=== PATIENT | female | born 1985 | race Caucasian/White ===

== ENCOUNTER 2021-08-20 05:48 | Inpatient (IN) | payer OTHER ==
[2021-08-20 06:42] LABS: HCT 39.9 % (37.0-47.0); HGB 13.8 g/dl (12.5-16.0); MCH 31.4 pg (25.0-31.0); MCHC 34.6 g/dL (32.0-36.0); MCV 90.9 fL (78.0-100.0); MPV 11.9 fL (6.0-9.5); RBC 4.39 M/uL (4.20-5.40); RDW 13.7 % (11.5-14.0); WBC 10.7 K/uL (4.0-10.5)
[2021-08-20 09:25] LABS: BILIRUBIN NEGATIVE (NEGATIVE); BLOOD NEGATIVE Ery/uL (NEGATIVE); CLARITY CLEAR (CLEAR); COLOR YELLOW (YELLOW); GLUCOSE (U) NORMAL (NORMAL); LEUKOCYTES NEGATIVE Leu/uL (NEGATIVE); NITRITE NEGATIVE (NEGATIVE); PROTEIN NEGATIVE (NEGATIVE); UROBILINOGEN 0.2 mg/dL (0.2-1.0)
[2021-08-20 09:30] LABS: AMPHETAMINES NEGATIVE (NEGATIVE); BARBITURATES NEGATIVE (NEGATIVE); ECSTASY (MDMA) NEGATIVE (NEGATIVE); MARIJUANA (THC) NEGATIVE (NEGATIVE); METHADONE NEGATIVE (NEGATIVE); OPIATES NEGATIVE (NEGATIVE); OXYCODONE NEGATIVE (NEGATIVE)
[2021-08-21 06:27] LABS: HCT 35.2 % (37.0-47.0)
== END 2021-08-22 11:27 | disposition home or self-care (01) | DRG 807 ==
LOC: FOB 05:48
PROVIDERS: ADMIT Obstetrics & Gynecology
PROC: 10E0XZZ Delivery of Products of Conception, External Approach (ICD-10-PCS; principal; 2021-08-20)
DX: O99.214 Obesity complicating childbirth (principal); Z37.0 Single live birth; Z3A.39 39 weeks gestation of pregnancy; Z20.822 Contact with and (suspected) exposure to COVID-19; O99.334 Smoking (tobacco) complicating childbirth; F17.200 Nicotine dependence, unspecified, uncomplicated
CPT/HCPCS: 36415; 80305; 81003; 85014; 85018; 86850; 86900; 86901; 90686; 90744; J2210; J7120; U0002

== ENCOUNTER → 2021-10-31 | Day surgery (SDC) | payer OTHER ==
[~2021-10-31] VITALS: Ht 172.7 cm; Wt 97.5 kg
[~2021-10-31] MED LIST: IBUPROFEN800 M1 PO; INDERAL LA160 MG PO; PERCOCET 5-3251 EACH PO; PRENATAL FORMU1 EACH PO; ZOFRAN4 M1 PO
[2021-10-31 07:31] LABS: HCG (URINE) SCREEN NEGATIVE (NEGATIVE)
[2021-10-31 08:26] LABS: BUN/CREAT RATIO (CALC) 12.3 RATIO; CREATININE 0.73 mg/dL (0.51-0.95); POTASSIUM 3.9 mmol/L (3.5-5.1)
== END | disposition home or self-care (01) ==
LOC: FAS 07:03
PROVIDERS: Obstetrics & Gynecology
DX: N93.9 Abnormal uterine and vaginal bleeding, unspecified (principal); I10 Essential (primary) hypertension; F17.200 Nicotine dependence, unspecified, uncomplicated; F41.9 Anxiety disorder, unspecified; M19.90 Unspecified osteoarthritis, unspecified site; F32.A Depression, unspecified; K21.9 Gastro-esophageal reflux disease without esophagitis; E66.9 Obesity, unspecified; Z68.31 Body mass index [BMI] 31.0-31.9, adult; Z39.1 Encounter for care and examination of lactating mother; Z79.899 Other long term (current) drug therapy; Z82.49 Family history of ischemic heart disease and other diseases of the circulatory system; Z72.89 Other problems related to lifestyle
CPT/HCPCS: 36415; 80048; 84703; 93005; J1100; J1170; J1885; J2250; J2405; J2704; J2710; J3010; J7120